=== PATIENT | male | born 1960 | race Caucasian/White ===

== ENCOUNTER 2020-10-11 06:09 | Inpatient (IN) ==
[2020-10-11] MEDS ORDERED: Naloxone 0.4 MG/ML INJ IVP PRN (08:50)
[2020-10-11] MEDS ORDERED: Albuterol 2.5 MG/3 ML NEBULIZER IH PRN (08:54)
[2020-10-11] MEDS ORDERED: Artificial Tears SOLN 15 ML BOTTLE BOTH EYES PRN (08:56)
[2020-10-11] MEDS ORDERED: Ringers Solution, Lactated 1,000 ML IVC SCH (09:00)
[2020-10-11 09:13] LABS: ABG Base Excess 21 mEq/L (-2 to 3); ABG HCO3 47 mEq/L (21-27); ABG Oxygen Saturation 94 % (95-98); ABG PCO2 58 mmHg (35-45); ABG PH 7.52 pH Units (7.32-7.45); ABG PO2 66 mmHg (85-104); ABG TCO2 49 mEq/L (20-26); Blood Gas Modality ASSIST CONTROL; Blood Gas Pressure Support 12 cm H2O
[2020-10-11] MEDS: Aspirin Enteric Coated 81 MG Tablet PO SCH (10:21)
[2020-10-11] MEDS: Chlorhexidine Rinse 15 ML MOUTHWASH MM SCH ×2 (10:21→21:41)
[2020-10-11] MEDS: Azithromycin 500 MG in 0.9 % Sodium Chloride 250 ML IVPB SCH (10:22)
[2020-10-11] MEDS: amLODIPine 5 MG TABLET PO SCH (10:22)
[2020-10-11] MEDS: Pantoprazole 40 MG VIAL IVP SCH (10:22)
[2020-10-11] MEDS: Budesonide/Formoterol 160/4.5 1 PUFF INH IH SCH ×2 (11:24→20:20)
[2020-10-11] MEDS: Ipratropium/Albuterol Neb 3 ML IH SCH ×4 (11:25→23:35)
[2020-10-11] MEDS: Artificial Tears SOLN 15 ML BOTTLE BOTH EYES SCH ×4 (12:23→23:29)
[2020-10-11] MEDS: Nicotine 21 MG PATCH.TD24 TD SCH (14:23)
[2020-10-11] MEDS: MethylPREDNISolone 40 MG/ML VIAL IVP SCH ×2 (16:49→23:29)
[2020-10-11] MEDS ORDERED: Acetaminophen 325 MG TABLET PO PRN (17:31)
[2020-10-11 19:29] LABS: BUN/Creatinine Ratio 25 (6-26); Blood Urea Nitrogen 13 mg/dL (8-23); Calcium 9.3 mg/dL (8.6-10.3); Carbon Dioxide 40 mEq/L (23-29); Chloride 93 mEq/L (98-107); Glucose 140 mg/dL (70-105); Osmolality,Calculated 298 (280-300); Sodium 143 mEq/L (136-145); eGFR For African Americans > 60 (> 60); eGFR For Non-African Americans > 60 (> 60)
[2020-10-11] MEDS ORDERED: *HR* Metoprolol 5 MG/5 ML VIAL IVP PRN (20:29)
[2020-10-11] MEDS ORDERED: rOPINIRole 1 MG TABLET PO SCH (21:00)
[2020-10-11] MEDS: Cefepime HCl 1,000 MG in Water for inj. (sterile) 10 ML IVP SCH (23:29)
[2020-10-12 01:02] LABS: Hematocrit 30.7 % (37.5-50.1); Hemoglobin 9.4 g/dL (12.9-16.9); Mean Corpuscular HGB Conc 30.6 g/dL (31.6-35.5); Mean Corpuscular Hemoglobin 31.3 pg (28.0-33.3); Mean Corpuscular Volume 102.3 fL (83.0-100.0); Mean Platelet Volume 10.5 fL (9.4-12.4); Platelet Count 105 K/mcL (140-400); Red Cell Distribution Width 11.5 % (11.5-14.5); White Blood Count 4.6 K/mcL (4.3-11.1)
[2020-10-12 02:35] LABS: BUN/Creatinine Ratio 27 (6-26); Blood Urea Nitrogen 14 mg/dL (8-23); Calcium 9.1 mg/dL (8.6-10.3); Carbon Dioxide 34 mEq/L (23-29); Chloride 95 mEq/L (98-107); Glucose 137 mg/dL (70-105); Magnesium 1.8 mg/dL (1.6-2.6); Osmolality,Calculated 301 (280-300); Potassium 3.7 mEq/L (3.5-5.1); Sodium 144 mEq/L (136-145); eGFR For African Americans > 60 (> 60); eGFR For Non-African Americans > 60 (> 60)
[2020-10-12 02:56] LABS: Thyroid Stimulating Hormone 0.152 mcIU/mL (0.340-5.600)
[2020-10-12 03:06] LABS: Folate 9.7 ng/mL (3.0-16.0)
[2020-10-12] MEDS: Artificial Tears SOLN 15 ML BOTTLE BOTH EYES SCH ×6 (03:12→23:31)
[2020-10-12] MEDS: Ipratropium/Albuterol Neb 3 ML IH SCH ×6 (04:04→23:49)
[2020-10-12] MEDS: Budesonide/Formoterol 160/4.5 1 PUFF INH IH SCH ×2 (08:23→20:02)
[2020-10-12] MEDS: Azithromycin 500 MG in 0.9 % Sodium Chloride 250 ML IVPB SCH (08:58)
[2020-10-12] MEDS: Chlorhexidine Rinse 15 ML MOUTHWASH MM SCH ×2 (08:59→20:48)
[2020-10-12] MEDS: MethylPREDNISolone 40 MG/ML VIAL IVP SCH ×3 (08:59→23:30)
[2020-10-12] MEDS: Cefepime HCl 1,000 MG in Water for inj. (sterile) 10 ML IVP SCH ×3 (08:59→23:30)
[2020-10-12] MEDS: Nicotine 21 MG PATCH.TD24 TD SCH (09:00)
[2020-10-12] MEDS: amLODIPine 5 MG TABLET PO SCH (09:00)
[2020-10-12] MEDS: Aspirin Enteric Coated 81 MG Tablet PO SCH (09:00)
[2020-10-12] MEDS: Pantoprazole 40 MG VIAL IVP SCH (09:01)
[2020-10-12] MEDS ORDERED: Albuterol 2.5 MG/3 ML NEBULIZER IH PRN (12:41)
[2020-10-12] MEDS ORDERED: Artificial Tears SOLN 15 ML BOTTLE BOTH EYES PRN (12:41)
[2020-10-12] MEDS ORDERED: Acetaminophen 325 MG TABLET PO PRN (12:41)
[2020-10-12] MEDS ORDERED: Naloxone 0.4 MG/ML INJ IVP PRN (12:41)
[2020-10-12] MEDS ORDERED: *HR* Metoprolol 5 MG/5 ML VIAL IVP PRN (12:41)
[2020-10-12] MEDS: rOPINIRole 1 MG TABLET PO SCH (20:47)
[2020-10-13] MEDS: Ipratropium/Albuterol Neb 3 ML IH SCH ×6 (04:04→23:33)
[2020-10-13] MEDS: Artificial Tears SOLN 15 ML BOTTLE BOTH EYES SCH ×5 (04:18→20:10)
[2020-10-13] MEDS: *HR* Heparin 5,000 UNIT/ML VIAL SQ SCH ×2 (06:09→16:43)
[2020-10-13 06:34] LABS: ABG Base Excess 13 mEq/L (-2 to 3); ABG HCO3 40 mEq/L (21-27); ABG Oxygen Saturation 95 % (95-98); ABG PCO2 68 mmHg (35-45); ABG PH 7.38 pH Units (7.32-7.45); ABG PO2 78 mmHg (85-104); ABG TCO2 42 mEq/L (20-26)
[2020-10-13 06:46] LABS: Hematocrit 27.3 % (37.5-50.1); Hemoglobin 8.5 g/dL (12.9-16.9); Mean Corpuscular HGB Conc 31.1 g/dL (31.6-35.5)
[2020-10-13 06:48] LABS: Immature Platelets 5.9 % (1.1-6.1); Mean Corpuscular Hemoglobin 31.6 pg (28.0-33.3); Mean Corpuscular Volume 101.5 fL (83.0-100.0); Mean Platelet Volume 10.4 fL (9.4-12.4); Red Blood Count 2.69 M/mcL (4.19-5.50); Red Cell Distribution Width 12.2 % (11.5-14.5); White Blood Count 5.4 K/mcL (4.3-11.1)
[2020-10-13 07:05] LABS: Vancomycin,Trough 6 mcg/mL (5-10)
[2020-10-13 07:10] LABS: BUN/Creatinine Ratio 60 (6-26); Blood Urea Nitrogen 27 mg/dL (8-23); Calcium 8.8 mg/dL (8.6-10.3); Carbon Dioxide 40 mEq/L (23-29); Chloride 106 mEq/L (98-107); Glucose 139 mg/dL (70-105); Osmolality,Calculated 301 (280-300); Potassium 3.5 mEq/L (3.5-5.1); Sodium 142 mEq/L (136-145); eGFR For African Americans > 60 (> 60); eGFR For Non-African Americans > 60 (> 60)
[2020-10-13] MEDS: Budesonide/Formoterol 160/4.5 1 PUFF INH IH SCH ×2 (07:30→19:43)
[2020-10-13] MEDS: MethylPREDNISolone 40 MG/ML VIAL IVP SCH ×2 (07:55→16:43)
[2020-10-13] MEDS: Cefepime HCl 1,000 MG in Water for inj. (sterile) 10 ML IVP SCH (07:55)
[2020-10-13] MEDS: Pantoprazole 40 MG VIAL IVP SCH (07:55)
[2020-10-13] MEDS: Aspirin Enteric Coated 81 MG Tablet PO SCH (07:56)
[2020-10-13] MEDS: Nicotine 21 MG PATCH.TD24 TD SCH (07:56)
[2020-10-13] MEDS: Chlorhexidine Rinse 15 ML MOUTHWASH MM SCH ×2 (07:56→21:27)
[2020-10-13] MEDS: amLODIPine 5 MG TABLET PO SCH (07:57)
[2020-10-13] MEDS ORDERED: Azithromycin 500 MG in 0.9 % Sodium Chloride 250 ML IVPB SCH (09:00)
[2020-10-13] MEDS ORDERED: *HR* HYDROcodone/Acet 10/325 mg TABLET PO ONE (10:21)
[2020-10-13 11:36] LABS: % Iron Saturation 16 % (20-55); Iron 42 mcg/dL (65-175); Transferrin 186 mg/dL (203-362)
[2020-10-13] MEDS: *HR* HYDROcodone/Acet 10/325 mg TABLET PO PRN (20:04)
[2020-10-13] MEDS ORDERED: clonazePAM 1 MG TABLET PO SCH (21:00)
[2020-10-13] MEDS: rOPINIRole 1 MG TABLET PO SCH (21:27)
[2020-10-14] MEDS: MethylPREDNISolone 40 MG/ML VIAL IVP SCH ×2 (00:14→08:08)
[2020-10-14] MEDS: Artificial Tears SOLN 15 ML BOTTLE BOTH EYES SCH ×4 (00:15→13:28)
[2020-10-14 02:56] LABS: Red Cell Distribution Width 12.2 % (11.5-14.5); White Blood Count 3.9 K/mcL (4.3-11.1)
[2020-10-14 02:58] LABS: Hematocrit 27.7 % (37.5-50.1); Hemoglobin 8.5 g/dL (12.9-16.9); Immature Platelets 7.1 % (1.1-6.1); Mean Corpuscular HGB Conc 30.7 g/dL (31.6-35.5); Mean Corpuscular Hemoglobin 31.1 pg (28.0-33.3); Mean Corpuscular Volume 101.5 fL (83.0-100.0); Mean Platelet Volume 10.6 fL (9.4-12.4); Red Blood Count 2.73 M/mcL (4.19-5.50)
[2020-10-14 03:16] LABS: BUN/Creatinine Ratio 44 (6-26); Blood Urea Nitrogen 21 mg/dL (8-23); Calcium 8.7 mg/dL (8.6-10.3); Carbon Dioxide 38 mEq/L (23-29); Chloride 98 mEq/L (98-107); Glucose 140 mg/dL (70-105); Osmolality,Calculated 295 (280-300); Potassium 3.4 mEq/L (3.5-5.1); Sodium 140 mEq/L (136-145); eGFR For African Americans > 60 (> 60); eGFR For Non-African Americans > 60 (> 60)
[2020-10-14] MEDS: Ipratropium/Albuterol Neb 3 ML IH SCH ×4 (04:14→16:24)
[2020-10-14] MEDS: *HR* HYDROcodone/Acet 10/325 mg TABLET PO PRN (04:54)
[2020-10-14] MEDS: *HR* Heparin 5,000 UNIT/ML VIAL SQ SCH (05:20)
[2020-10-14] MEDS: Chlorhexidine Rinse 15 ML MOUTHWASH MM SCH (08:06)
[2020-10-14] MEDS: Aspirin Enteric Coated 81 MG Tablet PO SCH (08:06)
[2020-10-14] MEDS: amLODIPine 5 MG TABLET PO SCH (08:06)
[2020-10-14] MEDS: Nicotine 21 MG PATCH.TD24 TD SCH (08:08)
[2020-10-14] MEDS: Pantoprazole 40 MG VIAL IVP SCH (08:09)
[2020-10-14] MEDS: Budesonide/Formoterol 160/4.5 1 PUFF INH IH SCH (08:16)
[2020-10-14] MEDS ORDERED: *HR* Acetaminophen w/Cod 300-30 mg 1 TAB TABLET PO SCH (09:00)
[2020-10-14 10:48] VITALS: BP 117/63
== END 2020-10-14 15:20 | disposition home or self-care (01) | DRG 133 ==
LOC: ICNU 08:10 → SUATTDRO 08:10 → 2NNU 10-12 13:19 → 3NENU 10-13 18:01
PROVIDERS: ADMIT Student in an Organized Health Care Education/Training Program; ATTEND Internal Medicine

== ENCOUNTER 2021-04-26 14:21 | Inpatient (IN) ==
[2021-04-26] MEDS ORDERED: Artificial Tears SOLN 15 ML BOTTLE BOTH EYES PRN (21:48)
[2021-04-26] MEDS ORDERED: *HR* Promethazine 25 MG/ML VIAL IM PRN (21:50)
[2021-04-26] MEDS ORDERED: Ondansetron 4 MG/2 ML VIAL IVP PRN (21:50)
[2021-04-26] MEDS ORDERED: Naloxone 0.4 MG/ML INJ IVP PRN (21:50)
[2021-04-26] MEDS ORDERED: Albuterol 2.5 MG/3 ML NEBULIZER IH PRN (22:15)
[2021-04-26] MEDS: FentaNYL (PF) 1,000 MCG/100 ML IV.SOLN IVC SCH (22:23)
[2021-04-26] MEDS: Azithromycin 500 MG in 0.9 % Sodium Chloride 250 ML IVPB SCH (22:32)
[2021-04-26] MEDS ORDERED: Ringers Solution, Lactated 500 ML IVC ONE (22:41)
[2021-04-26] MEDS: Artificial Tears SOLN 15 ML BOTTLE BOTH EYES SCH (23:12)
[2021-04-26] MEDS: MethylPREDNISolone 40 MG/ML VIAL IVP SCH (23:12)
[2021-04-26] MEDS: Ipratropium/Albuterol Neb 3 ML IH SCH (23:24)
[2021-04-26 23:51] LABS: ABG Base Excess 17 mEq/L (-2 to 3); ABG HCO3 40 mEq/L (21-27); ABG Oxygen Saturation 100 % (95-98); ABG PCO2 36 mmHg (35-45); ABG PH 7.65 pH Units (7.32-7.45); ABG PO2 173 mmHg (85-104); ABG TCO2 41 mEq/L (20-26); Blood Gas Modality ASSIST CONTROL; Blood Gas VT 450 cc
[2021-04-26 23:56] LABS: Adenovirus Not Detected (Not Detect); Bordetella Pertussis Not Detected (Not Detect); Chlamydophila pneumoniae Not Detected (Not Detect); Coronavirus 229E Not Detected (Not Detect); Coronavirus HKU1 Not Detected (Not Detect); Coronavirus NL63 Not Detected (Not Detect); Coronavirus OC43 Not Detected (Not Detect); Human Metapneumovirus Not Detected (Not Detect); Human Rhinovirus/Enterovirus Not Detected (Not Detect); Influenza A Subtype 2009 H1 Not Detected (Not Detect); Influenza B Not Detected (Not Detect); Mycoplasma pneumoniae Not Detected (Not Detect); Parainfluenza Virus 1 Not Detected (Not Detect); Parainfluenza Virus 2 Not Detected (Not Detect); Parainfluenza Virus 3 Not Detected (Not Detect); Parainfluenza Virus 4 Not Detected (Not Detect); Respiratory Syncytial Virus Not Detected (Not Detect); SARS-CoV-2 Not Detected (Not Detect)
[2021-04-27] MEDS: Dexmedetomidine HCl 400 MCG/100 ML MLS IVC SCH ×2 (00:32→15:09)
[2021-04-27 00:46] LABS: Alanine Aminotransferase 21 Units/L (7-52); Albumin 3.4 g/dL (3.5-5.7); Albumin/Globulin Ratio 1.7 (1.1-2.2); Alkaline Phosphatase 41 Units/L (34-104); Aspartate Amino Transferase 20 Units/L (13-39); BUN/Creatinine Ratio 45 (6-26); Bilirubin,Total 0.6 mg/dL (0.3-1.0); Blood Urea Nitrogen 22 mg/dL (8-23); C-Reactive Protein 19 mg/L (Less than 10); Calcium 8.5 mg/dL (8.6-10.3); Chloride 93 mEq/L (98-107); Ferritin 104 ng/mL (20-250); Glucose 104 mg/dL (70-105); Lactate Dehydrogenase 226 Units/L (140-271); Osmolality,Calculated 300 (280-300); Potassium 5.2 mEq/L (3.5-5.1); Sodium 143 mEq/L (136-145); Total Protein 5.4 g/dL (6.4-8.9); eGFR For African Americans > 60 (> 60); eGFR For Non-African Americans > 60 (> 60)
[2021-04-27 02:33] LABS: Carbon Dioxide 41 mEq/L (23-29)
[2021-04-27] MEDS: Artificial Tears SOLN 15 ML BOTTLE BOTH EYES SCH ×6 (03:10→23:39)
[2021-04-27 03:33] LABS: ABG Base Excess 18 mEq/L (-2 to 3); ABG HCO3 45 mEq/L (21-27); ABG Oxygen Saturation 87 % (95-98); ABG PCO2 71 mmHg (35-45); ABG PH 7.42 pH Units (7.32-7.45); ABG PO2 55 mmHg (85-104); ABG TCO2 48 mEq/L (20-26); Blood Gas Modality ASSIST CONTROL; Blood Gas VT 430 cc
[2021-04-27] MEDS: FentaNYL (PF) 1,000 MCG/100 ML IV.SOLN IVC SCH ×4 (04:00→22:38)
[2021-04-27] MEDS: Ipratropium/Albuterol Neb 3 ML IH SCH ×6 (04:04→23:42)
[2021-04-27 04:23] LABS: BUN/Creatinine Ratio 55 (6-26); Blood Urea Nitrogen 21 mg/dL (8-23); Calcium 7.9 mg/dL (8.6-10.3); Carbon Dioxide 44 mEq/L (23-29); Chloride 96 mEq/L (98-107); Glucose 119 mg/dL (70-105); Magnesium 1.6 mg/dL (1.6-2.6); Osmolality,Calculated 296 (280-300); Sodium 141 mEq/L (136-145); eGFR For African Americans > 60 (> 60); eGFR For Non-African Americans > 60 (> 60)
[2021-04-27 04:24] LABS: Prothrombin Time 11.5 Seconds (9.4-12.1)
[2021-04-27] MEDS: *HR* Enoxaparin 40 MG/0.4 ML SYRINGE SQ SCH (05:00)
[2021-04-27] MEDS: MethylPREDNISolone 40 MG/ML VIAL IVP SCH ×3 (08:00→23:39)
[2021-04-27] MEDS: cefTRIAXone 1,000 MG in 0.9 % Sodium Chloride Mini Bag 100 ML IVPB SCH (08:04)
[2021-04-27] MEDS: Chlorhexidine Rinse 15 ML MOUTHWASH MM SCH ×2 (08:13→20:10)
[2021-04-27] MEDS: Pantoprazole 40 MG VIAL IVP SCH (08:17)
[2021-04-27 11:32] LABS: Mean Corpuscular Volume 106.6 fL (83.0-100.0)
[2021-04-27 11:33] LABS: Hematocrit 27.5 % (37.5-50.1); Hemoglobin 7.9 g/dL (12.9-16.9); Immature Platelets 5.1 % (1.1-6.1); Mean Corpuscular HGB Conc 28.7 g/dL (31.6-35.5); Mean Corpuscular Hemoglobin 30.6 pg (28.0-33.3); Mean Platelet Volume 10.6 fL (9.4-12.4); Red Blood Count 2.58 M/mcL (4.19-5.50); Red Cell Distribution Width 12.2 % (11.5-14.5); White Blood Count 4.2 K/mcL (4.3-11.1)
[2021-04-27 11:52] LABS: Platelet Count 97 K/mcL (140-400)
[2021-04-27 12:40] LABS: Hypochromasia Present (Not Present); Lymphocytes # 0.7 K/mcL (0.6-4.6); Monocytes # 0.1 K/mcL (0.0-1.3); Neutrophils # 3.4 K/mcL (1.6-8.9); Platelet Estimate Decreased (Normal)
[2021-04-27] MEDS ORDERED: *HR* Etomidate 20 MG/10 ML AMPUL IVP ONE (17:48)
[2021-04-27] MEDS ORDERED: *HR* Rocuronium Bromide 50 MG/5 ML VIAL IVP ONE (17:48)
[2021-04-27] MEDS: Azithromycin 500 MG in 0.9 % Sodium Chloride 250 ML IVPB SCH (22:35)
[2021-04-28] MEDS ORDERED: *HR* Dextrose 50 % in Water (Syg) 50 ML SYRINGE IVP PRN (02:33)
[2021-04-28] MEDS ORDERED: D5% in Water 1,000 ML IVC PRN (02:33)
[2021-04-28] MEDS ORDERED: Dextrose Gel 15 GM/37.5 ML TUBE PO PRN ×2 (02:33)
[2021-04-28] MEDS ORDERED: Insulin LISPRO 300 UNITS/3 ML VIAL SUBQ SCH (02:45)
[2021-04-28] MEDS: Ipratropium/Albuterol Neb 3 ML IH SCH ×6 (03:22→23:37)
[2021-04-28] MEDS: Artificial Tears SOLN 15 ML BOTTLE BOTH EYES SCH ×5 (03:45→20:16)
[2021-04-28 03:50] LABS: Immature Granulocytes % 0.7 % (0-4); Mean Platelet Volume 10.4 fL (9.4-12.4); Red Cell Distribution Width 12.8 % (11.5-14.5)
[2021-04-28] MEDS: FentaNYL (PF) 1,000 MCG/100 ML IV.SOLN IVC SCH (03:50)
[2021-04-28 03:52] LABS: Hematocrit 26.8 % (37.5-50.1); Immature Platelets 5.7 % (1.1-6.1); Lymphocytes # 0.4 K/mcL (0.6-4.6); Lymphocytes % 8.7 %; Mean Corpuscular HGB Conc 29.9 g/dL (31.6-35.5); Mean Corpuscular Hemoglobin 30.7 pg (28.0-33.3); Mean Corpuscular Volume 102.7 fL (83.0-100.0); Monocytes # 0.2 K/mcL (0.0-1.3); Monocytes % 5.6 %; Neutrophils # 3.5 K/mcL (1.6-8.9); Red Blood Count 2.61 M/mcL (4.19-5.50); White Blood Count 4.1 K/mcL (4.3-11.1)
[2021-04-28] MEDS: Insulin LISPRO 300 UNITS/3 ML VIAL SUBQ SCH ×5 (03:53→20:17)
[2021-04-28 03:55] LABS: Platelet Count 98 K/mcL (140-400)
[2021-04-28 03:57] LABS: VBG Ionized Calcium 1.19 mmol/L (1.15-1.35)
[2021-04-28 04:29] LABS: ABG Base Excess 21 mEq/L (-2 to 3); ABG HCO3 48 mEq/L (21-27); ABG Oxygen Saturation 95 % (95-98); ABG PCO2 73 mmHg (35-45); ABG PH 7.43 pH Units (7.32-7.45); ABG PO2 77 mmHg (85-104); ABG TCO2 > 50 mEq/L (20-26); Blood Gas Modality ASSIST CONTROL; Blood Gas VT 380 cc
[2021-04-28] MEDS: Dexmedetomidine HCl 400 MCG/100 ML MLS IVC SCH (04:32)
[2021-04-28 04:35] LABS: BUN/Creatinine Ratio 76 (6-26); Blood Urea Nitrogen 26 mg/dL (8-23); Calcium 8.7 mg/dL (8.6-10.3); Carbon Dioxide 45 mEq/L (23-29); Chloride 94 mEq/L (98-107); Glucose 186 mg/dL (70-105); Osmolality,Calculated 294 (280-300); Potassium 3.4 mEq/L (3.5-5.1); Sodium 137 mEq/L (136-145); eGFR For African Americans > 60 (> 60); eGFR For Non-African Americans > 60 (> 60)
[2021-04-28] MEDS ORDERED: Potassium Chloride Elixir 20 MEQ/15 ML UDC GTUBE ONE (04:57)
[2021-04-28] MEDS: *HR* Enoxaparin 40 MG/0.4 ML SYRINGE SQ SCH (05:21)
[2021-04-28] MEDS: MethylPREDNISolone 40 MG/ML VIAL IVP SCH ×3 (08:34→23:13)
[2021-04-28] MEDS: cefTRIAXone 1,000 MG in 0.9 % Sodium Chloride Mini Bag 100 ML IVPB SCH (08:35)
[2021-04-28] MEDS: Chlorhexidine Rinse 15 ML MOUTHWASH MM SCH ×2 (08:35→20:17)
[2021-04-28] MEDS: Pantoprazole 40 MG VIAL IVP SCH (08:35)
[2021-04-28] MEDS ORDERED: Ipratropium/Albuterol Neb 3 ML IH PRN (08:36)
[2021-04-28] MEDS ORDERED: tiZANidine 4 MG TABLET PO PRN (08:36)
[2021-04-28] MEDS ORDERED: Acetaminophen 650 MG RECTAL SUPP RC PRN (08:36)
[2021-04-28] MEDS ORDERED: Bisacodyl 10 MG RECTAL SUPPOSITORY RC PRN (08:36)
[2021-04-28] MEDS ORDERED: Sennosides 8.6 MG TABLET PO PRN (08:36)
[2021-04-28] MEDS ORDERED: hydrOXYzine pamoate 25 MG CAPSULE PO PRN (08:36)
[2021-04-28] MEDS ORDERED: Ondansetron ODT 4 MG TAB.RAPDIS SL PRN (08:36)
[2021-04-28] MEDS ORDERED: GuaiFENesin/Dextromethorphan TABLET PO PRN (08:36)
[2021-04-28] MEDS ORDERED: *HR* OxyCODONE Immed Rel 5 MG TABLET PO PRN (08:52)
[2021-04-28] MEDS: clonazePAM 1 MG TABLET PO SCH ×3 (09:28→20:21)
[2021-04-28] MEDS: Aspirin Enteric Coated 81 MG Tablet PO SCH (09:28)
[2021-04-28] MEDS ORDERED: rOPINIRole 1 MG TABLET PO SCH (21:00)
[2021-04-28] MEDS: Azithromycin 500 MG in 0.9 % Sodium Chloride 250 ML IVPB SCH (22:42)
[2021-04-29] MEDS: Ipratropium/Albuterol Neb 3 ML IH SCH ×5 (03:53→19:59)
[2021-04-29 04:02] LABS: Hematocrit 27.7 % (37.5-50.1); Hemoglobin 8.2 g/dL (12.9-16.9); Mean Corpuscular HGB Conc 29.6 g/dL (31.6-35.5); Red Cell Distribution Width 13.7 % (11.5-14.5)
[2021-04-29 04:04] LABS: Immature Granulocytes % 0.6 % (0-4); Immature Platelets 7.7 % (1.1-6.1); Lymphocytes # 0.3 K/mcL (0.6-4.6); Lymphocytes % 3.5 %; Mean Corpuscular Hemoglobin 30.7 pg (28.0-33.3); Mean Corpuscular Volume 103.7 fL (83.0-100.0); Mean Platelet Volume 10.7 fL (9.4-12.4); Monocytes # 0.3 K/mcL (0.0-1.3); Monocytes % 2.9 %; Platelet Count 124 K/mcL (140-400); Red Blood Count 2.67 M/mcL (4.19-5.50); White Blood Count 8.6 K/mcL (4.3-11.1)
[2021-04-29 04:28] LABS: BUN/Creatinine Ratio 45 (6-26); Blood Urea Nitrogen 18 mg/dL (8-23); Calcium 8.9 mg/dL (8.6-10.3); Carbon Dioxide > 45 mEq/L (23-29); Chloride 96 mEq/L (98-107); Glucose 111 mg/dL (70-105); Osmolality,Calculated 301 (280-300); Potassium 4.1 mEq/L (3.5-5.1); Sodium 144 mEq/L (136-145); eGFR For African Americans > 60 (> 60); eGFR For Non-African Americans > 60 (> 60)
[2021-04-29 04:36] LABS: ABG Base Excess 17 mEq/L (-2 to 3); ABG HCO3 44 mEq/L (21-27); ABG Oxygen Saturation 76 % (95-98); ABG PCO2 71 mmHg (35-45); ABG PO2 43 mmHg (85-104); ABG TCO2 46 mEq/L (20-26)
[2021-04-29] MEDS: *HR* Enoxaparin 40 MG/0.4 ML SYRINGE SQ SCH (05:15)
[2021-04-29] MEDS: MethylPREDNISolone 40 MG/ML VIAL IVP SCH ×2 (08:13→19:29)
[2021-04-29] MEDS: clonazePAM 1 MG TABLET PO SCH ×3 (08:14→20:09)
[2021-04-29] MEDS: Aspirin Enteric Coated 81 MG Tablet PO SCH (08:14)
[2021-04-29] MEDS: cefTRIAXone 1,000 MG in 0.9 % Sodium Chloride Mini Bag 100 ML IVPB SCH (08:15)
[2021-04-29] MEDS: Pantoprazole 40 MG VIAL IVP SCH (08:15)
[2021-04-29] MEDS: haloperidoL 1 MG TABLET PO PRN ×2 (09:29→13:08)
[2021-04-29] MEDS: Doxycycline 100 MG in 0.9 % Sodium Chloride Mini Bag 100 ML IVPB SCH ×3 (09:35→19:28)
[2021-04-29] MEDS ORDERED: *HR* Promethazine 25 MG/ML VIAL IM PRN (16:31)
[2021-04-29] MEDS ORDERED: Ondansetron ODT 4 MG TAB.RAPDIS SL PRN (16:31)
[2021-04-29] MEDS ORDERED: Artificial Tears SOLN 15 ML BOTTLE BOTH EYES PRN (16:31)
[2021-04-29] MEDS ORDERED: hydrOXYzine pamoate 25 MG CAPSULE PO PRN (16:31)
[2021-04-29] MEDS ORDERED: Acetaminophen 650 MG RECTAL SUPP RC PRN (16:31)
[2021-04-29] MEDS ORDERED: Albuterol 2.5 MG/3 ML NEBULIZER IH PRN (16:31)
[2021-04-29] MEDS ORDERED: *HR* Dextrose 50 % in Water (Syg) 50 ML SYRINGE IVP PRN (16:31)
[2021-04-29] MEDS ORDERED: Ipratropium/Albuterol Neb 3 ML IH PRN (16:31)
[2021-04-29] MEDS ORDERED: Sennosides 8.6 MG TABLET PO PRN (16:31)
[2021-04-29] MEDS ORDERED: Dextrose Gel 15 GM/37.5 ML TUBE PO PRN ×2 (16:31)
[2021-04-29] MEDS ORDERED: Ondansetron 4 MG/2 ML VIAL IVP PRN (16:31)
[2021-04-29] MEDS ORDERED: haloperidoL 1 MG TABLET PO PRN (16:31)
[2021-04-29] MEDS ORDERED: Bisacodyl 10 MG RECTAL SUPPOSITORY RC PRN (16:31)
[2021-04-29] MEDS ORDERED: D5% in Water 1,000 ML IVC PRN (16:31)
[2021-04-29] MEDS ORDERED: GuaiFENesin/Dextromethorphan TABLET PO PRN (16:31)
[2021-04-29] MEDS ORDERED: Naloxone 0.4 MG/ML INJ IVP PRN (16:31)
[2021-04-29] MEDS ORDERED: MethylPREDNISolone 40 MG/ML VIAL IVP SCH (20:00)
[2021-04-29] MEDS: tiZANidine 4 MG TABLET PO PRN (20:08)
[2021-04-29] MEDS ORDERED: rOPINIRole 1 MG TABLET PO SCH (21:00)
[2021-04-30] MEDS: Ipratropium/Albuterol Neb 3 ML IH SCH ×4 (00:11→11:37)
[2021-04-30 02:35] LABS: Immature Granulocytes % 0.2 % (0-4); Lymphocytes # 0.5 K/mcL (0.6-4.6); Lymphocytes % 7.1 %; Mean Corpuscular Hemoglobin 30.4 pg (28.0-33.3); Mean Corpuscular Volume 104.7 fL (83.0-100.0); Mean Platelet Volume 11.2 fL (9.4-12.4); Monocytes # 0.2 K/mcL (0.0-1.3); Monocytes % 3.4 %; Neutrophils # 5.8 K/mcL (1.6-8.9); Platelet Count 107 K/mcL (140-400); Red Blood Count 2.96 M/mcL (4.19-5.50); Red Cell Distribution Width 13.4 % (11.5-14.5); Segmented Neutrophils % 89.3 %; White Blood Count 6.5 K/mcL (4.3-11.1)
[2021-04-30 03:08] LABS: BUN/Creatinine Ratio 56 (6-26); Blood Urea Nitrogen 20 mg/dL (8-23); Calcium 8.9 mg/dL (8.6-10.3); Carbon Dioxide 41 mEq/L (23-29); Chloride 98 mEq/L (98-107); Glucose 110 mg/dL (70-105); Osmolality,Calculated 293 (280-300); Sodium 140 mEq/L (136-145); eGFR For African Americans > 60 (> 60); eGFR For Non-African Americans > 60 (> 60)
[2021-04-30] MEDS: Doxycycline 100 MG in 0.9 % Sodium Chloride Mini Bag 100 ML IVPB SCH (05:01)
[2021-04-30] MEDS: tiZANidine 4 MG TABLET PO PRN (05:02)
[2021-04-30] MEDS ORDERED: *HR* Enoxaparin 40 MG/0.4 ML SYRINGE SQ SCH (06:00)
[2021-04-30 08:07] VITALS: BP 128/63; O2SAT 93
[2021-04-30] MEDS: clonazePAM 1 MG TABLET PO SCH (08:59)
[2021-04-30] MEDS: MethylPREDNISolone 40 MG/ML VIAL IVP SCH (08:59)
[2021-04-30] MEDS ORDERED: Aspirin Enteric Coated 81 MG Tablet PO SCH (09:00)
[2021-04-30 13:40] VITALS: PULSE 90; TEMP 98.6
== END 2021-04-30 12:49 | disposition hospice, home (50) | DRG 133 ==
LOC: ICNU → SUATTDRO 21:34 → 2ANU 04-29 23:30
PROVIDERS: ADMIT Internal Medicine; ATTEND Internal Medicine